=== PATIENT | male | born 1980 | race Caucasian/White ===

== ENCOUNTER 2020-07-31 11:58 | Emergency (ER) | payer OTHER ==
[~2020-07-31] VITALS: Ht 170.2 cm; Wt 83.1 kg
[2020-07-31 13:14] VITALS: BP 154/90
[2020-07-31] MEDS ORDERED: TYLENOL # 31 EA PO (13:24)
[2020-07-31] MEDS ORDERED: KETOROLAC TROMETHAMINE 60 MG/2 ML VIAL IM ONE (13:30)
== END 2020-07-31 13:34 | disposition home or self-care (01) ==
LOC: FSED 12:30
DX: M54.5 Low back pain (principal); R10.30 Lower abdominal pain, unspecified; N20.2 Calculus of kidney with calculus of ureter
CPT/HCPCS: 74176; 81003; 96372; 99283; J1885

== ENCOUNTER 2020-08-21 13:10 | Observation (INO) | payer OTHER ==
[~2020-08-21] VITALS: Ht 170.2 cm; Wt 79.4 kg
[~2020-08-21 13:10] MED LIST: TYLENOL # 31 EA PO
[2020-08-21] MEDS ORDERED: SODIUM CHLORIDE 0.9% 50ML 50 ML ONE (13:33)
[2020-08-21] MEDS ORDERED: IOPAMIDOL 370 MG/ML 200 ML INFUS..BTL INJ ONE (13:34)
[2020-08-21] MEDS ORDERED: ONDANSETRON HCL INJ 2MG/ML 2ML 2 MG/ML VIAL IV PRN (15:00)
[2020-08-21] MEDS ORDERED: ASPIRIN 325 MG TAB PO ONE (15:00)
[2020-08-21] MEDS ORDERED: ASPIRIN 81 MG CHEW TAB PO ONE (15:00)
[2020-08-21] MEDS ORDERED: ASPIRIN 325 MG TAB ONE (15:18)
[2020-08-21 16:46] VITALS: BP 119/89
[2020-08-21 17:53] VITALS: BP 119/89
[2020-08-21 20:00] VITALS: BP 134/94
[2020-08-21 21:54] VITALS: BP 134/94
[2020-08-21 23:18] LABS: CREATINE KINASE MB 0.4 ng/mL (0-5.0)
[2020-08-22] VITALS (7 sets, daily range): BP systolic 113–144; BP diastolic 79–90
[2020-08-22] MEDS ORDERED: KETOROLAC TROMETHAMINE 30 MG/ML VIAL IV STA (05:11)
[2020-08-22 06:03] LABS: CHOL/HDL RATIO 5.8 (3.9-4.7)
[2020-08-22 06:51] LABS: CREATINE KINASE MB 0.3 ng/mL (0-5.0)
[2020-08-22] MEDS ORDERED: METOPROLOL TART25 MG PO (08:01)
[2020-08-22] MEDS ORDERED: ONDANSETRON HCL 4 MG ORAL DISINTEGRATING TAB PO PRN (08:15)
[2020-08-22] MEDS ORDERED: ASPIRIN 325 MG TAB EC PO SCH (09:00)
[2020-08-22] MEDS ORDERED: ASPIRIN 81 MG ENTERIC COATED PO SCH (09:00)
[2020-08-22 14:31] LABS: CREATINE KINASE MB 0.3 ng/mL (0-5.0)
== END 2020-08-22 20:23 | disposition home or self-care (01) ==
LOC: FSED 13:20 → ERHOLD 14:58 → MED/SURG2 16:12
PROVIDERS: ADMIT Internal Medicine; ATTEND Internal Medicine
DX: R07.9 Chest pain, unspecified (principal); U07.1 COVID-19; I10 Essential (primary) hypertension; Z82.49 Family history of ischemic heart disease and other diseases of the circulatory system; Z91.013 Allergy to seafood
CPT/HCPCS: 36415 ×2; 71260; 80053; 80061; 82550 ×2; 82553 ×2; 84484 ×2; 85025; 93005; 93306; 99284; G0378 ×2; J1885; Q9967; U0002